=== PATIENT | female | born 1950 | race Hispanic/Latino ===

== ENCOUNTER 2017-04-16 19:20 | Inpatient (IN) | payer OTHER ==
[~2017-04-16] VITALS: Ht 160 cm; Wt 95.5 kg
[~2017-04-16 19:20] MED LIST: ADV500 IH; ALBU2.5V2 IH; AMLODIPINE PO; ARFO15VI3 IH; BUDE10.2 IH; CHOL50004 PO; FENO200C PO; IPRATROPIUM NEB; LISI10TA7 PO; MONT10TA21 PO; MULTIVITAMIN PO; OMEP20CA10 PO; PROVENTIL IH; VITAMIN B12 PO; XOPENEX NEB
[2017-04-16] MEDS ORDERED: IPRATROPIUM/ALBUTEROL SULFATE 3 ML SOLUTION IH ONE ×2 (20:36)
[2017-04-16 21:13] LABS: BASOPHILS % (AUTO) 0.3 % (0.0-5.0); EOSINOPHILS % (AUTO) 0.3 % (0.0-8.0); HEMATOCRIT 38.1 % (36-48); LYMPHOCYTES % (AUTO) 9.2 % (21.0-51.0); MEAN CORPUSCULAR HEMOGLOBIN 30.1 pg (27.0-33.0); MEAN CORPUSCULAR HGB CONC 32.7 g/dL (32.0-36.0); MEAN CORPUSCULAR VOLUME 92.1 fL (79-99); MONOCYTES % (AUTO) 4.3 % (3.0-13.0); NEUTROPHILS % (AUTO) 85.9 % (40.0-77.0); PLATELET COUNT (AUTO) 458 K/uL (130-400); RED BLOOD CELL COUNT(AUTO) 4.14 MIL/uL (4.00-5.50); RED CELL DISTRIBUTION WIDTH 15.2 % (11.0-15.5); WHITE BLOOD COUNT (AUTO) 21.9 K/uL (4.8-10.8)
[2017-04-16 21:29] LABS: POTASSIUM 4.4 mmol/L (3.5-5.1)
[2017-04-16 21:32] LABS: ALBUMIN 3.1 g/dL (3.5-5.0); BILIRUBIN,TOTAL 0.5 mg/dL (0.2-1.0); TOTAL PROTEIN, SERUM 7.1 g/dL (6.0-8.3)
[2017-04-16] MEDS ORDERED: OSELTAMIVIR PHOSPHATE 75 MG CAP ONE (22:18)
[2017-04-16] MEDS ORDERED: AZITHROMYCIN 250 MG TABLET PO ONE (22:42)
[2017-04-17] MEDS ORDERED: LIDOCAINE HCL-MPF 1% 2ML VIAL IVP PRN (01:45)
[2017-04-17] MEDS ORDERED: POTASSIUM CHLORIDE 10% ELIXIR 20 MEQ/15 ML UDCUP PO PRN (01:45)
[2017-04-17] MEDS ORDERED: ACETAMINOPHEN-CODEINE 300/30MG TAB PO PRN (01:45)
[2017-04-17] MEDS: LEVOFLOXACIN 500 MG/D5W 100 ML 100 ML IV SCH (01:45)
[2017-04-17] MEDS ORDERED: GLUCAGON 1MG KIT 1 MG ML IM PRN (01:45)
[2017-04-17] MEDS ORDERED: DiphenhydrAMINE HCL 50 MG/ML VIAL IV PRN (01:45)
[2017-04-17] MEDS ORDERED: POTASSIUM CHLORIDE 20MEQ/100ML 100 ML IV PRN (01:45)
[2017-04-17] MEDS ORDERED: POTASSIUM CHLORIDE 20 MEQ ERTAB PO PRN (01:45)
[2017-04-17] MEDS ORDERED: DEXTROSE 50%-WATER 50 ML DISP.SYRIN IV PRN (01:45)
[2017-04-17] MEDS ORDERED: AZITHROMYCIN 500MG+NS 250ML 250 ML IV SCH (01:45)
[2017-04-17] MEDS: IPRATROPIUM/ALBUTEROL SULFATE 3 ML SOLUTION IH SCH ×7 (02:00→22:42)
[2017-04-17] MEDS ORDERED: LEVOFLOXACIN 500 MG/D5W 100 ML 100 ML ONE (02:22)
[2017-04-17] MEDS ORDERED: IPRATROPIUM/ALBUTEROL SULFATE 3 ML SOLUTION IH ONE ×4 (02:32→14:02)
[2017-04-17 06:00] LABS: BASOPHILS % (AUTO) 0.6 % (0.0-5.0); EOSINOPHILS % (AUTO) 0.7 % (0.0-8.0); LYMPHOCYTES % (AUTO) 10.6 % (21.0-51.0); MEAN CORPUSCULAR HEMOGLOBIN 30.3 pg (27.0-33.0); MEAN CORPUSCULAR HGB CONC 33.1 g/dL (32.0-36.0); MEAN CORPUSCULAR VOLUME 91.5 fL (79-99); NEUTROPHILS % (AUTO) 82.1 % (40.0-77.0); PLATELET COUNT (AUTO) 411 K/uL (130-400); RED BLOOD CELL COUNT(AUTO) 3.72 MIL/uL (4.00-5.50); RED CELL DISTRIBUTION WIDTH 15.2 % (11.0-15.5)
[2017-04-17 06:20] LABS: CREATININE 0.9 mg/dL (0.5-1.5); POTASSIUM 3.6 mmol/L (3.5-5.1)
[2017-04-17] MEDS: INSULIN HUMULIN R 100 UNIT/ML 3ML SQ SCH ×4 (07:30→21:00)
[2017-04-17] MEDS ORDERED: FAMOTIDINE 20MG TAB 20 MG TAB ONE (08:08)
[2017-04-17] MEDS ORDERED: OSELTAMIVIR PHOSPHATE 75 MG CAP ONE (08:09)
[2017-04-17] MEDS: FAMOTIDINE 20MG TAB 20 MG TAB PO SCH ×2 (09:00→21:02)
[2017-04-17] MEDS: OSELTAMIVIR PHOSPHATE 75 MG CAP PO SCH ×2 (09:00→21:02)
[2017-04-17 15:06] VITALS: BP 137/70
[2017-04-17 16:00] VITALS: BP 114/60
[2017-04-17] MEDS ORDERED: CALC600T12 PO (17:26)
[2017-04-17] MEDS ORDERED: CHOL50004 PO (17:26)
[2017-04-17] MEDS ORDERED: DIPH1TAB24 PO (17:26)
[2017-04-17] MEDS ORDERED: CETI10TA86 PO (17:26)
[2017-04-17] MEDS ORDERED: ASPI-1197 PO (17:26)
[2017-04-17] MEDS ORDERED: CYAN25002 SL (17:26)
[2017-04-17] MEDS ORDERED: PANT40TA25 PO (17:26)
[2017-04-17] MEDS ORDERED: LISI-613 PO (17:26)
[2017-04-17] MEDS ORDERED: FENO160T16 PO (17:26)
[2017-04-17] MEDS ORDERED: ALBU90AE IH (17:26)
[2017-04-17] MEDS ORDERED: FLUT1AER IH (17:26)
[2017-04-17] MEDS ORDERED: TRAZ-144 PO (17:26)
[2017-04-17 20:33] VITALS: BP 123/66
[2017-04-17] MEDS: METHYLPREDNISOLONE SOD SUCC 125MG/2ML VIAL IVP SCH (21:02)
[2017-04-17] MEDS: ACETAMINOPHEN-CODEINE 300/30MG TAB PO PRN (21:08)
[2017-04-18 00:10] VITALS: BP 116/63
[2017-04-18] MEDS: IPRATROPIUM/ALBUTEROL SULFATE 3 ML SOLUTION IH SCH ×6 (01:35→23:47)
[2017-04-18] MEDS: LEVOFLOXACIN 500 MG/D5W 100 ML 100 ML IV SCH (02:01)
[2017-04-18 03:55] VITALS: BP 116/62
[2017-04-18 05:11] LABS: BASOPHILS % (AUTO) 0.2 % (0.0-5.0); HEMATOCRIT 35.8 % (36-48); LYMPHOCYTES % (AUTO) 4.5 % (21.0-51.0); MEAN CORPUSCULAR HEMOGLOBIN 30.7 pg (27.0-33.0); MEAN CORPUSCULAR HGB CONC 33.3 g/dL (32.0-36.0); MEAN CORPUSCULAR VOLUME 92.2 fL (79-99); MONOCYTES % (AUTO) 0.8 % (3.0-13.0); NEUTROPHILS % (AUTO) 94.5 % (40.0-77.0); PLATELET COUNT (AUTO) 468 K/uL (130-400); RED BLOOD CELL COUNT(AUTO) 3.89 MIL/uL (4.00-5.50); RED CELL DISTRIBUTION WIDTH 14.8 % (11.0-15.5)
[2017-04-18 05:20] LABS: CREATININE 1.2 mg/dL (0.5-1.5); POTASSIUM 4.4 mmol/L (3.5-5.1)
[2017-04-18 05:46] LABS: B-TYPE NATRIURETIC PEPTIDE 21 pg/mL (0-100)
[2017-04-18] MEDS: INSULIN HUMULIN R 100 UNIT/ML 3ML SQ SCH ×4 (06:46→21:00)
[2017-04-18 08:20] VITALS: BP 127/77
[2017-04-18] MEDS ORDERED: COMPOUND PO MISCELLANEOUS 1 EACH MISC MISC PRN (10:15)
[2017-04-18] MEDS: FAMOTIDINE 20MG TAB 20 MG TAB PO SCH ×2 (10:40→20:39)
[2017-04-18] MEDS: METHYLPREDNISOLONE SOD SUCC 125MG/2ML VIAL IVP SCH ×2 (10:40→20:38)
[2017-04-18] MEDS: OSELTAMIVIR PHOSPHATE 75 MG CAP PO SCH ×2 (10:40→20:38)
[2017-04-18] MEDS: GUAIFENESIN-DM 200/20 MG 10 ML PO PRN ×2 (10:42→23:31)
[2017-04-18 12:22] VITALS: BP 134/72
[2017-04-18] MEDS: BENZONATATE 100 MG CAPSULE PO SCH ×2 (13:11→20:38)
[2017-04-18 16:39] VITALS: BP 137/75
[2017-04-18] MEDS: BUDESONIDE 0.5 MG/2 ML INH IH SCH (18:46)
[2017-04-18] MEDS: ACETYLCYSTEINE 20% 200MG/ML 4ML VIAL IH SCH (18:49)
[2017-04-18 20:00] VITALS: BP 141/78
[2017-04-18] MEDS: CETIRIZINE HCL 5 MG TABLET PO SCH (20:38)
[2017-04-18] MEDS ORDERED: TRAZODONE HCL 50 MG TAB PO PRN (21:00)
[2017-04-19] VITALS (7 sets, daily range): BP systolic 109–131; BP diastolic 50–75
[2017-04-19] MEDS: LEVOFLOXACIN 500 MG/D5W 100 ML 100 ML IV SCH (02:23)
[2017-04-19 04:12] LABS: BASOPHILS % (AUTO) 0.1 % (0.0-5.0); HEMATOCRIT 34.2 % (36-48); LYMPHOCYTES % (AUTO) 4.2 % (21.0-51.0); MEAN CORPUSCULAR HEMOGLOBIN 30.1 pg (27.0-33.0); MEAN CORPUSCULAR VOLUME 91.1 fL (79-99); NEUTROPHILS % (AUTO) 92.7 % (40.0-77.0); PLATELET COUNT (AUTO) 462 K/uL (130-400); RED BLOOD CELL COUNT(AUTO) 3.76 MIL/uL (4.00-5.50); RED CELL DISTRIBUTION WIDTH 15.2 % (11.0-15.5); WHITE BLOOD COUNT (AUTO) 17.1 K/uL (4.8-10.8)
[2017-04-19 04:28] LABS: CREATININE 1.2 mg/dL (0.5-1.5); POTASSIUM 4.3 mmol/L (3.5-5.1)
[2017-04-19] MEDS: INSULIN HUMULIN R 100 UNIT/ML 3ML SQ SCH ×4 (06:52→21:00)
[2017-04-19] MEDS: IPRATROPIUM/ALBUTEROL SULFATE 3 ML SOLUTION IH SCH ×3 (06:53→18:26)
[2017-04-19] MEDS: BUDESONIDE 0.5 MG/2 ML INH IH SCH ×2 (07:06→18:31)
[2017-04-19] MEDS: VITAMIN B12 SL SCH (09:00)
[2017-04-19] MEDS: ACETYLCYSTEINE 20% 200MG/ML 4ML VIAL IH SCH ×2 (09:00→18:26)
[2017-04-19] MEDS: VITAMIN D3 PO SCH (09:00)
[2017-04-19] MEDS: ENOXAPARIN SODIUM 40 MG/0.4 ML SYRINGE SQ SCH (10:35)
[2017-04-19] MEDS: CALCIUM CARBON 500MG CHEW TAB PO SCH (10:36)
[2017-04-19] MEDS: FAMOTIDINE 20MG TAB 20 MG TAB PO SCH ×2 (10:36→21:28)
[2017-04-19] MEDS: OSELTAMIVIR PHOSPHATE 75 MG CAP PO SCH ×2 (10:36→21:28)
[2017-04-19] MEDS: BENZONATATE 100 MG CAPSULE PO SCH ×3 (10:36→21:28)
[2017-04-19] MEDS: LISINOPRIL 20 MG TABLET PO SCH (10:40)
[2017-04-19] MEDS: ASPIRIN 81MG TAB.CHEW PO SCH (10:40)
[2017-04-19] MEDS: GUAIFENESIN-DM 200/20 MG 10 ML PO PRN (15:23)
[2017-04-19] MEDS: ACETAMINOPHEN-CODEINE 300/30MG TAB PO PRN (15:24)
[2017-04-19] MEDS ORDERED: PHENOL 177 ML BOTTLE PO PRN ×2 (17:00→17:20)
[2017-04-19] MEDS ORDERED: FENOFIBRATE NANOCRYSTALLIZED 145 MG TAB PO SCH (21:00)
[2017-04-19] MEDS: CETIRIZINE HCL 5 MG TABLET PO SCH (21:27)
[2017-04-19] MEDS: METHYLPREDNISOLONE SOD SUCC 125MG/2ML VIAL IVP SCH (21:28)
[2017-04-20] MEDS: ACETYLCYSTEINE 20% 200MG/ML 4ML VIAL IH SCH ×2 (00:30→06:50)
[2017-04-20] MEDS: IPRATROPIUM/ALBUTEROL SULFATE 3 ML SOLUTION IH SCH ×2 (00:30→06:50)
[2017-04-20] MEDS: LEVOFLOXACIN 500 MG/D5W 100 ML 100 ML IV SCH (02:50)
[2017-04-20 03:45] LABS: HEMATOCRIT 32.3 % (36-48); MEAN CORPUSCULAR HEMOGLOBIN 30.8 pg (27.0-33.0); MEAN CORPUSCULAR HGB CONC 33.6 g/dL (32.0-36.0); MEAN CORPUSCULAR VOLUME 91.6 fL (79-99); PLATELET COUNT (AUTO) 423 K/uL (130-400); RED BLOOD CELL COUNT(AUTO) 3.52 MIL/uL (4.00-5.50); WHITE BLOOD COUNT (AUTO) 13.1 K/uL (4.8-10.8)
[2017-04-20 03:48] VITALS: BP 111/64
[2017-04-20 04:23] LABS: CREATININE 1.1 mg/dL (0.5-1.5); POTASSIUM 5.2 mmol/L (3.5-5.1)
[2017-04-20] MEDS: INSULIN HUMULIN R 100 UNIT/ML 3ML SQ SCH ×2 (06:09→11:30)
[2017-04-20 07:00] VITALS: BP 118/59
[2017-04-20] MEDS: BUDESONIDE 0.5 MG/2 ML INH IH SCH (07:14)
[2017-04-20] MEDS: ENOXAPARIN SODIUM 40 MG/0.4 ML SYRINGE SQ SCH (09:00)
[2017-04-20] MEDS: VITAMIN B12 SL SCH (09:00)
[2017-04-20] MEDS: VITAMIN D3 PO SCH (09:00)
[2017-04-20 11:02] VITALS: BP 113/71
[2017-04-20] MEDS: FAMOTIDINE 20MG TAB 20 MG TAB PO SCH (12:49)
[2017-04-20] MEDS: METHYLPREDNISOLONE SOD SUCC 125MG/2ML VIAL IVP SCH (12:49)
[2017-04-20] MEDS: OSELTAMIVIR PHOSPHATE 75 MG CAP PO SCH (12:49)
[2017-04-20] MEDS: CALCIUM CARBON 500MG CHEW TAB PO SCH (12:50)
[2017-04-20] MEDS: BENZONATATE 100 MG CAPSULE PO SCH (12:50)
[2017-04-20] MEDS: ASPIRIN 81MG TAB.CHEW PO SCH (12:50)
[2017-04-20] MEDS: LISINOPRIL 20 MG TABLET PO SCH (12:50)
== END 2017-04-20 13:30 | disposition home or self-care (01) | DRG 871 ==
LOC: EDH 19:20 → EDHIP 23:15 → 3BH 04-17 14:07
PROVIDERS: ADMIT Internal Medicine; ATTEND Internal Medicine
DX: A41.9 Sepsis, unspecified organism (principal); J10.00 Influenza due to other identified influenza virus with unspecified type of pneumonia; J45.901 Unspecified asthma with (acute) exacerbation; J10.1 Influenza due to other identified influenza virus with other respiratory manifestations; M19.90 Unspecified osteoarthritis, unspecified site; E78.5 Hyperlipidemia, unspecified; I10 Essential (primary) hypertension; Z88.0 Allergy status to penicillin
CPT/HCPCS: 36415; 71045; 71046; 71250; 80048; 80053; 82948; 83880; 85025; 85027; 87804; 93005; 94640; 94664; J1650; J1815; J1956; J2930; J7608

== ENCOUNTER → 2017-12-12 | Outpatient (CLI) | payer OTHER ==
[~2017-12-12] MED LIST changes: -ADV500 IH; -ALBU2.5V2 IH; +ALBU90AE IH; -AMLODIPINE PO; -ARFO15VI3 IH; +ASPI-1197 PO; -BUDE10.2 IH; +CALC600T12 PO; +CETI10TA86 PO; +CYAN25002 SL; +DIPH1TAB24 PO; +FENO160T16 PO; -FENO200C PO; +FLUT1AER IH; -IPRATROPIUM NEB; +LISI-613 PO; -LISI10TA7 PO; -MONT10TA21 PO; -MULTIVITAMIN PO; -OMEP20CA10 PO; +PANT40TA25 PO; -PROVENTIL IH; +TRAZ-185 PO; -VITAMIN B12 PO; -XOPENEX NEB
== END | disposition home or self-care (01) ==
LOC: RAH 08:56
PROVIDERS: ATTEND Internal Medicine Gastroenterology
DX: K80.20 Calculus of gallbladder without cholecystitis without obstruction (principal); K76.0 Fatty (change of) liver, not elsewhere classified
CPT/HCPCS: 76700

== ENCOUNTER → 2018-07-18 | Outpatient (CLI) | payer OTHER | END | disposition home or self-care (01) | LOC: RAH 08:33 | PROVIDERS: ATTEND Internal Medicine | DX: M19.011 Primary osteoarthritis, right shoulder (principal) | CPT/HCPCS: 73030 ==

== ENCOUNTER → 2019-01-20 | Outpatient (CLI) | payer OTHER | END | disposition home or self-care (01) | LOC: RAH 10:40 | PROVIDERS: ATTEND Internal Medicine Gastroenterology | DX: K31.84 Gastroparesis (principal) | CPT/HCPCS: 78264; A9541 ==

== ENCOUNTER 2019-06-06 10:26 | Inpatient (IN) | payer OTHER ==
[~2019-06-06] VITALS: Ht 160 cm; Wt 95.3 kg
[2019-06-06 11:02] LABS: EOSINOPHILS % (AUTO) 2.5 % (0.0-8.0); HEMATOCRIT 37.4 % (36-48); LYMPHOCYTES % (AUTO) 11.7 % (21.0-51.0); MEAN CORPUSCULAR HEMOGLOBIN 30.2 pg (27.0-33.0); MEAN CORPUSCULAR HGB CONC 33.2 g/dL (32.0-36.0); MONOCYTES % (AUTO) 9.2 % (3.0-13.0); NEUTROPHILS % (AUTO) 75.2 % (40.0-77.0); PLATELET COUNT (AUTO) 284 K/uL (130-400); RED BLOOD CELL COUNT(AUTO) 4.11 MIL/uL (4.00-5.50); RED CELL DISTRIBUTION WIDTH 14.7 % (11.0-15.5); WHITE BLOOD COUNT (AUTO) 10.6 K/uL (4.8-10.8)
[2019-06-06 11:15] LABS: CARBON DIOXIDE 23 mmol/L (21-32); CHLORIDE 103 mmol/L (101-111); GLOMERULAR FILTR. RATE CALC 58 mL/min (>60); GLUCOSE,RANDOM 86 mg/dL (70-105); SODIUM SERUM 138 mmol/L (136-145); UREA NITROGEN, BLOOD 28 mg/dL (7-18)
[2019-06-06 11:19] LABS: ALANINE AMINOTRANSFERASE 113 U/L (12-78); ALBUMIN 3.1 g/dL (3.5-5.0); ASPARTATE AMINOTRANSFERASE 117 U/L (10-37); BILIRUBIN,TOTAL 13.9 mg/dL (0.2-1.0); TOTAL PROTEIN, SERUM 7.6 g/dL (6.0-8.3)
[2019-06-06 11:40] LABS: CREATINE KINASE, TOTAL 41 U/L (21-232); LIPASE 101 U/L (114-286)
[2019-06-06] MEDS ORDERED: MORPHINE SULFATE 4 MG/1ML SYG ONE (11:42)
[2019-06-06] MEDS ORDERED: ONDANSETRON HCL 4 MG/2 ML VIAL ONE (11:42)
[2019-06-06] MEDS ORDERED: SODIUM CHLORIDE 0.9% 1000ML 1,000 ML IV ONE ×2 (11:44→15:40)
[2019-06-06 12:10] LABS: AMMONIA < 3 umol/L (11-32)
[2019-06-06 12:15] LABS: INR 0.98 (0.85-1.15); PARTIAL THROMBOPLASTIN TIME 27.6 SEC (26.3-35.5); PROTHROMBIN TIME 10.6 SEC (9.6-11.6)
[2019-06-06] MEDS: SODIUM CHLORIDE 0.9% 1000ML 1,000 ML IV SCH (13:38)
[2019-06-06] MEDS ORDERED: ONDANSETRON HCL 4 MG/2 ML VIAL IV PRN (13:45)
[2019-06-06] MEDS ORDERED: LACTULOSE 20 GM/30 ML UDCUP PO PRN (13:45)
[2019-06-06] MEDS ORDERED: SODIUM CHLORIDE 0.9% 500ML 500 ML IV ONE (14:58)
[2019-06-06] MEDS ORDERED: IOHEXOL-350 75 ML VIAL IV ONE (16:55)
[2019-06-06] MEDS ORDERED: ACETAMINOPHEN 325 MG TAB ONE (20:15)
[2019-06-06] MEDS ORDERED: FAMOTIDINE/PF 20 MG/2 ML VIAL IV ONE (20:15)
[2019-06-06] MEDS: FAMOTIDINE/PF 20 MG/2 ML VIAL IV SCH (21:00)
[2019-06-06 21:15] VITALS: BP 120/79
[2019-06-06] MEDS ORDERED: CYAN100099 PO (21:53)
[2019-06-06] MEDS ORDERED: BUDE10.2 IH (21:53)
[2019-06-06] MEDS ORDERED: MONT10TA26 PO (21:53)
[2019-06-06] MEDS ORDERED: OMEP40CA13 PO (21:53)
[2019-06-06] MEDS ORDERED: MVIT PO (21:53)
[2019-06-06 23:23] VITALS: BP 120/52
[2019-06-06] MEDS: LEVOFLOXACIN 500 MG/D5W 100 ML 100 ML IV SCH (23:51)
[2019-06-07] MEDS: SODIUM CHLORIDE 0.9% 1000ML 1,000 ML IV SCH ×2 (03:16→18:17)
[2019-06-07 03:35] VITALS: BP 128/68
[2019-06-07 05:38] LABS: BASOPHILS % (AUTO) 1.2 % (0.0-5.0); EOSINOPHILS % (AUTO) 7.2 % (0.0-8.0); LYMPHOCYTES % (AUTO) 13.6 % (21.0-51.0); MEAN CORPUSCULAR HEMOGLOBIN 29.8 pg (27.0-33.0); MEAN CORPUSCULAR HGB CONC 32.5 g/dL (32.0-36.0); MEAN CORPUSCULAR VOLUME 91.7 fL (79-99); NEUTROPHILS % (AUTO) 64.6 % (40.0-77.0); PLATELET COUNT (AUTO) 249 K/uL (130-400); RED BLOOD CELL COUNT(AUTO) 3.49 MIL/uL (4.00-5.50); WHITE BLOOD COUNT (AUTO) 7.7 K/uL (4.8-10.8)
[2019-06-07 06:12] LABS: ALBUMIN 2.3 g/dL (3.5-5.0); BILIRUBIN,TOTAL 11.8 mg/dL (0.2-1.0); CREATININE 0.8 mg/dL (0.5-1.5); TOTAL PROTEIN, SERUM 6.3 g/dL (6.0-8.3)
[2019-06-07 06:30] LABS: BILIRUBIN,DIRECT 10.3 mg/dL (0.0-0.3)
[2019-06-07 07:54] VITALS: BP 127/72
[2019-06-07] MEDS: FAMOTIDINE/PF 20 MG/2 ML VIAL IV SCH ×2 (08:23→20:13)
[2019-06-07] MEDS: ENOXAPARIN SODIUM 30 MG/0.3 ML SQ SCH (08:23)
--- NOTE | 2019-06-07 13:07 | NUR ---
Nutrition Intervention: Nutrition consult based on admission trigger. Pt. reports has lost 8#(4% of UBW) in 1 week due to decreased appetite and +N/V. Pt. states is missing front upper teeth and needs soft diet when advanced. Pt. NPO for MRCP/ERCP. Spoke with pt. regarding nutritional supplementation when diet advanced and pt. agreed to try. Labs reviewed(Alb 2.3, T. Bili 11.8, AST 70, Alk PHOS 204). LBM: 06/03/2019. Recommendations: 1) When medically feasible, rec. Clear Liquids and advance as tolerated to Heart Healthy GI Soft Energy Mech Soft diet with Ensure supplement QD. 2) Continue to monitor pt's nutritional status. 3) Consult RD as nutrition concerns arise. Addendum: 06/07/19 at [address] Amended: Links added.
[2019-06-07 15:47] VITALS: BP 127/67
--- NOTE | 2019-06-07 17:11 | NUR ---
INITIAL MET W FAMILY IN ROOM- PT IN RESTROOM SON LIZANDRO BEARD W PATIENT AND PROVIDED RESPONSES. PT MOSTLY INDPENDENT, HAS CANE AND NEBULIZER FOR HX ASTHMA WHICH SHE USES AT TIME. HOME SAFE AND ACCESSIBLE, NO SHOWER CHAIR IN BATHROOM HOWEVER. HAS PROVIDER< 20 HRS WEEK, FAMILY PROVIDES TRANSPORT TO MD VISITS AND WILL PROVIDE TRANSPORT HOME DCP HOME, PT CURRENTLY STILL BEING WORKED UP FOR HIGH BILIRUBIN. CM TO FOLLOW Addendum: 06/08/19 at 0948 by JANES BELL RN CM Amended: Links added.
[2019-06-07 19:46] VITALS: BP 117/58
[2019-06-07] MEDS: DiphenhydrAMINE HCL 50 MG/ML VIAL IV PRN (20:17)
[2019-06-07 23:34] VITALS: BP 122/54
[2019-06-07] MEDS: LEVOFLOXACIN 500 MG/D5W 100 ML 100 ML IV SCH (23:58)
[2019-06-08 03:30] VITALS: BP 118/68
[2019-06-08 05:27] LABS: BASOPHILS % (AUTO) 0.7 % (0.0-5.0); EOSINOPHILS % (AUTO) 1.5 % (0.0-8.0); HEMATOCRIT 34.8 % (36-48); LYMPHOCYTES % (AUTO) 11.2 % (21.0-51.0); MEAN CORPUSCULAR HEMOGLOBIN 30.4 pg (27.0-33.0); MEAN CORPUSCULAR HGB CONC 33.6 g/dL (32.0-36.0); MEAN CORPUSCULAR VOLUME 90.4 fL (79-99); MONOCYTES % (AUTO) 6.4 % (3.0-13.0); NEUTROPHILS % (AUTO) 79.9 % (40.0-77.0); PLATELET COUNT (AUTO) 302 K/uL (130-400); RED BLOOD CELL COUNT(AUTO) 3.85 MIL/uL (4.00-5.50); RED CELL DISTRIBUTION WIDTH 15.2 % (11.0-15.5); WHITE BLOOD COUNT (AUTO) 9.9 K/uL (4.8-10.8)
[2019-06-08 05:56] LABS: ALBUMIN 2.2 g/dL (3.5-5.0); BILIRUBIN,TOTAL 10.5 mg/dL (0.2-1.0); CREATININE 0.9 mg/dL (0.5-1.5); POTASSIUM 4.3 mmol/L (3.5-5.1); TOTAL PROTEIN, SERUM 6.2 g/dL (6.0-8.3)
[2019-06-08 07:17] LABS: APPEARANCE,URINE CLEAR (CLEAR); BILIRUBIN,URINE LARGE (NEGATIVE); COLOR,URINE BROWN (YELLOW); GLUCOSE, URINE (UA) NEGATIVE (NEGATIVE); KETONES,URINE 15 mg/dL (NEGATIVE); LEUKOCYTE ESTERASE ,URINE NEGATIVE (NEGATIVE); NITRATE,URINE POSITIVE (NEGATIVE); OCCULT BLOOD,URINE TRACE-INTACT (NEGATIVE); PH,URINE 5.5 (5.0-8.0); PROTEIN,URINE TRACE mg/dL (NEGATIVE)
[2019-06-08 07:30] VITALS: BP 112/68
[2019-06-08 07:31] LABS: MUCUS,URINE Moderate LPF (None Seen); SQUAMOUS EPITHELIAL CELL,UR Few /HPF (0-2)
[2019-06-08 07:32] LABS: BACTERIA,URINE Moderate /HPF (None Seen); RBC,URINE 0-1 /HPF (0-1); WBC,URINE 0-1 /HPF (0-1)
[2019-06-08] MEDS: ENOXAPARIN SODIUM 30 MG/0.3 ML SQ SCH (09:08)
[2019-06-08] MEDS: FAMOTIDINE/PF 20 MG/2 ML VIAL IV SCH ×2 (09:08→21:18)
[2019-06-08] MEDS: SODIUM CHLORIDE 0.9% 1000ML 1,000 ML IV SCH (09:08)
[2019-06-08] MEDS: DiphenhydrAMINE HCL 50 MG/ML VIAL IV PRN (09:12)
[2019-06-08 11:00] VITALS: BP 127/73
[2019-06-08 16:00] VITALS: BP 117/59
[2019-06-08 20:49] VITALS: BP 128/62
[2019-06-08] MEDS: LEVOFLOXACIN 500 MG/D5W 100 ML 100 ML IV SCH (23:02)
[2019-06-09 00:26] VITALS: BP 110/53
[2019-06-09 04:48] VITALS: BP 137/69
[2019-06-09] MEDS: SODIUM CHLORIDE 0.9% 1000ML 1,000 ML IV SCH ×2 (06:09→13:00)
[2019-06-09 06:11] LABS: BASOPHILS % (AUTO) 0.7 % (0.0-5.0); EOSINOPHILS % (AUTO) 11.1 % (0.0-8.0); HEMATOCRIT 34.1 % (36-48); LYMPHOCYTES % (AUTO) 14.5 % (21.0-51.0); MEAN CORPUSCULAR HEMOGLOBIN 30.3 pg (27.0-33.0); MEAN CORPUSCULAR HGB CONC 33.4 g/dL (32.0-36.0); MEAN CORPUSCULAR VOLUME 90.7 fL (79-99); MONOCYTES % (AUTO) 9.1 % (3.0-13.0); NEUTROPHILS % (AUTO) 64.3 % (40.0-77.0); PLATELET COUNT (AUTO) 342 K/uL (130-400); RED BLOOD CELL COUNT(AUTO) 3.76 MIL/uL (4.00-5.50); RED CELL DISTRIBUTION WIDTH 15.5 % (11.0-15.5); WHITE BLOOD COUNT (AUTO) 7.4 K/uL (4.8-10.8)
[2019-06-09 06:43] LABS: ALBUMIN 2.4 g/dL (3.5-5.0); CREATININE 0.9 mg/dL (0.5-1.5); POTASSIUM 3.8 mmol/L (3.5-5.1); TOTAL PROTEIN, SERUM 6.5 g/dL (6.0-8.3)
[2019-06-09 07:30] VITALS: BP 132/76
[2019-06-09] MEDS: FAMOTIDINE/PF 20 MG/2 ML VIAL IV SCH ×2 (09:21→20:10)
[2019-06-09] MEDS: ENOXAPARIN SODIUM 30 MG/0.3 ML SQ SCH (09:23)
[2019-06-09 11:00] VITALS: BP 133/75
--- NOTE | 2019-06-09 11:26 | NUR ---
DR. PETERSON TO BE CONSULTED RE: ACUTE CHOLECYSTITIS.
--- NOTE | 2019-06-09 12:30 | NUR ---
DR. HUGHES SPOKE TO DR. PETERSON RE:SURGERY, PLAN TO TRANSFER PT. OUT. HOUSE SUPER AND CHARGE NURSE NOTIFIED.
[2019-06-09] MEDS ORDERED: METRONIDAZOLE 500MG/100ML BAG 100 ML IV SCH (14:00)
--- NOTE | 2019-06-09 14:00 | NUR ---
MISSED 1400 DOSE OF FLAGYL, DID NOT SEE ORDER.
[2019-06-09 16:00] VITALS: BP 133/76
[2019-06-09] MEDS ORDERED: BUDESONIDE 0.5 MG/2 ML INH IH ONE (17:29)
--- NOTE | 2019-06-09 17:33 | NUR ---
WAITING FOR PAPER WORK TO BE COMPLETED FOR TRANSFER, PT. AT THIS TIME DOING OK, NO C/O OF PAIN SO FAR.
[2019-06-09] MEDS ORDERED: BUDESONIDE 0.5 MG/2 ML INH IH SCH (18:00)
[2019-06-09 20:00] VITALS: BP 127/72
--- NOTE | 2019-06-09 20:42 | NUR ---
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 1420 [facility] contacted pt declined for no beds holding in ER. 1442 transfer center contacted for [facility] [phone] information provided will call back. 1730 follow up with transfer center spoke with [place] which will call back. [phone] call back received with acceptance and bed assignment room 206B and primary nurse to call report to [phone] . 2024 consent sign and EMS set up . Link [place]
[2019-06-09] MEDS ORDERED: MONTELUKAST SODIUM 10 MG TAB PO SCH (21:00)
--- NOTE | 2019-06-09 21:00 | NUR ---
CALLED [facility], CALLED IN REPORT TO KAROLYN ABREU, PT TO BE ADMITTED TO ROOM 206B.
--- NOTE | 2019-06-09 21:20 | NUR ---
EMS HERE TO TRANSFER TO [facility]. PATIENT AAOX3, NO ACUTE DISTRESS NOTED, TELEMETRY REMOVED, PATENT 20GA PIV TO RAC REMAIN IN PLACE, NO REDNESS/SWELLING OR ANY OTHER SIGN/SYMPTOM OF INFILTRATION. DAUGHTER AT BEDSIDE.
[2019-06-10] MEDS ORDERED: PANTOPRAZOLE SODIUM 40 MG TABLET.DR PO SCH (07:30)
[2019-06-10] MEDS ORDERED: MULTIVITAMIN TABLET PO SCH (09:00)
[2019-06-10] MEDS ORDERED: FENOFIBRATE 160 MG PO SCH (09:00)
[2019-06-10] MEDS ORDERED: CYANOCOBALAMIN (VITAMIN B-12) 1,000 MCG TABLET PO SCH (09:00)
[2019-06-10] MEDS ORDERED: ***HM***(Cholecalciferol (Vitamin D3) 5,000 UNIT) PO SCH (09:00)
[2019-06-10] MEDS ORDERED: LISINOPRIL 20 MG TABLET PO SCH (09:00)
[2019-06-10] MEDS ORDERED: CALCIUM 600 + VITAMIN D 400 TABLET PO SCH (09:00)
== END 2019-06-09 21:21 | disposition short-term general hospital (02) | DRG 445 ==
LOC: EDH 10:26 → EDHIP 10:27 → 3BH 19:59
PROVIDERS: ADMIT Family Medicine; ATTEND Family Medicine
DX: K80.01 Calculus of gallbladder with acute cholecystitis with obstruction (principal); E44.0 Moderate protein-calorie malnutrition; R16.0 Hepatomegaly, not elsewhere classified; E53.8 Deficiency of other specified B group vitamins; E66.9 Obesity, unspecified; E78.5 Hyperlipidemia, unspecified; I10 Essential (primary) hypertension; J45.909 Unspecified asthma, uncomplicated; M19.90 Unspecified osteoarthritis, unspecified site; Z82.0 Family history of epilepsy and other diseases of the nervous system; Z82.3 Family history of stroke; Z82.49 Family history of ischemic heart disease and other diseases of the circulatory system; Z82.5 Family history of asthma and other chronic lower respiratory diseases; Z83.3 Family history of diabetes mellitus; Z88.0 Allergy status to penicillin; Z68.37 Body mass index [BMI] 37.0-37.9, adult; Z80.0 Family history of malignant neoplasm of digestive organs
CPT/HCPCS: 36415; 71045; 74177; 74181; 76705; 78226; 80053; 81001; 82140; 82150; 82248; 82550; 83690; 84484; 85025; 85610; 85730; 93005; 94640; 94664; 99291; A9537; G0378; J1200; J1650; J1956; J2270; J2405; J3490; J7030; J7040; Q9967

== ENCOUNTER → 2024-09-11 | Outpatient (CLI) | payer OTHER ==
[~2024-09-11] MED LIST changes: -ALBU90AE IH; +BUDE10.2 IH; +CALC-1125 PO; -CALC600T12 PO; -CETI10TA86 PO; +CYAN-37 PO; -CYAN25002 SL; -DIPH1TAB24 PO; -FLUT1AER IH; -LISI-613 PO; +LISI20TA24 PO; +MONT-39 PO; +MVIT PO; +OMEP40CA21 PO; -PANT40TA25 PO; -TRAZ-185 PO
--- NOTE | 2024-09-11 16:00 | HMCIMG ---
BONE DENSITOMETRY: HISTORY: Other specified disorders of bone density and structure, multiple sites Comparison: none FINDINGS: BMD measured at AP spine L1-L4 is 1.001 g/cm2 with a T-score of -0.3 Bone density is up to 10% below young normal. This patient is considered normal according to WHO criteria. Fracture risk is low. BMD measured at Left Femoral Neck is 0.664 g/cm2 with a T-score of -1.8 Bone density is between 10 and 25% below young normal. This patient is considered osteopenic. Fracture risk is moderate. BMD measured at Left Femoral Total is 0.739 g/cm2 with a T-score of -1.7 Bone density is between 10 and 25% below young normal. This patient is considered osteopenic. Fracture risk is moderate. IMPRESSION: Osteopenia. Treatment and follow-up recommended.
== END | disposition home or self-care (01) ==
LOC: RAH 14:16
PROVIDERS: ATTEND Internal Medicine
DX: M85.89 Other specified disorders of bone density and structure, multiple sites (principal)
CPT/HCPCS: 77080

== ENCOUNTER → 2024-10-16 | Outpatient (CLI) | payer OTHER ==
[~2024-10-16] MED LIST changes: +IOHEXOL-350 75 ML VIAL IV ONE
--- NOTE | 2024-10-16 17:14 | HMCIMG ---
EXAM: CT Abdomen and Pelvis With Intravenous Contrast CLINICAL HISTORY: 73-year-old female with periumbilical pain TECHNIQUE: Axial computed tomography images of the abdomen and pelvis with intravenous contrast. Dose reduction technique was used including one or more of the following: automated exposure control, adjustment of mA and kV according to patient size, and/or iterative reconstruction. Oral contrast is seen in the stomach, small bowel, and colon to the level of the left colon. CONTRAST: 75 mL of IV contrast COMPARISON: CT Abdomen and Pelvis 06/06/2019 FINDINGS: LUNG BASES: Atelectasis at the lung bases. LIVER: Unremarkable. GALLBLADDER AND BILE DUCTS: Unremarkable. No ductal dilation. PANCREAS: Unremarkable. SPLEEN: Unremarkable. ADRENAL GLANDS: Small left adrenal mass is seen measuring 1.6 cm in diameter with negative 27 Hounsfield units suggesting presence of adrenal adenoma, correlate with clinical laboratory data. Adrenal adenoma is similar to CT Abdomen and Pelvis 06/06/2019. KIDNEYS, URETERS, AND BLADDER: Small left renal cyst seen. STOMACH AND BOWEL: No obstruction. No wall thickening. No CT evidence of acute diverticulitis. Severe sigmoid diverticulosis is seen, similar to prior CT Abdomen and Pelvis 06/06/2019. APPENDIX: No CT evidence for appendicitis. PERITONEUM: No free fluid. No free air. LYMPH NODES: No lymphadenopathy. REPRODUCTIVE: Calcified uterine fibroid seen, similar to prior CT Abdomen and Pelvis 06/06/2019. VASCULATURE: No aortic aneurysm. ABDOMINAL WALL AND SOFT TISSUES: An enlarged left lower quadrant anterior abdominal hernia is seen containing mesenteric fat. BONES: No fracture or suspicious osseous abnormality. IMPRESSION: 1. No acute findings. 2. Enlarged left lower quadrant anterior abdominal hernia containing mesenteric fat. 3. Severe sigmoid diverticulosis without evidence of diverticulitis. 4. Small left adrenal mass measuring 1.6 cm with negative 27 Hounsfield units, consistent with adrenal adenoma. Correlate with clinical laboratory data. /[place]
== END | disposition home or self-care (01) ==
LOC: RAH 09:27
PROVIDERS: ATTEND Internal Medicine Gastroenterology
DX: N28.1 Cyst of kidney, acquired (principal); D25.9 Leiomyoma of uterus, unspecified; K57.30 Diverticulosis of large intestine without perforation or abscess without bleeding; K46.9 Unspecified abdominal hernia without obstruction or gangrene; E27.8 Other specified disorders of adrenal gland; J98.11 Atelectasis; R10.33 Periumbilical pain
CPT/HCPCS: 74178; Q9967

== ENCOUNTER → 2024-11-20 | Outpatient (CLI) | payer OTHER ==
[~2024-11-20] MED LIST changes: -IOHEXOL-350 75 ML VIAL IV ONE
--- NOTE | 2024-11-20 16:11 | HMCIMG ---
STUDY: ULTRASOUND PELVIC CLINICAL INDICATION: Normal uterus from prior CT COMPARISON: Prior CT demonstrated calcified uterine fibroid TECHNIQUE: Transabdominal ultrasound of the pelvis was performed. FINDINGS: The uterus measures 8.7 x 2.4 x 2.9 cm. cm. The endometrial stripe measures 0.5 cm. The right ovary is not visualized. The right adnexa appears to be normal.. The left ovary is not visualized the left adnexa appears minimal.. No free fluid is demonstrated in the cul-de-sac. The urinary bladder demonstrate no abnormality.. IMPRESSION: 1. Limited pelvic sonogram due to large body habitus. 2. If pelvic pain remains of clinical concern, further characterization with pelvic MRI may be beneficial.
== END | disposition home or self-care (01) ==
LOC: RAH 14:58
PROVIDERS: ATTEND Internal Medicine
DX: N93.9 Abnormal uterine and vaginal bleeding, unspecified (principal)
CPT/HCPCS: 76856